=== PATIENT | male | born 1995 | race Caucasian/White ===

== ENCOUNTER 2019-11-21 17:21 | Emergency (ER) | payer MEDICAID ==
[~2019-11-21] VITALS: Ht 170.2 cm; Wt 61.7 kg
--- NOTE | 2019-11-21 17:30 | NUR ---
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
--- NOTE | 2019-11-21 17:38 | NUR ---
[employer]ES[employer] CONSULTANT DEGRASSE AT BEDSIDE FOR EVAL
[2019-11-21] MEDS ORDERED: IV NS 0.9% 1,000 ML BAG IV ONE (18:00)
--- NOTE | 2019-11-21 19:25 | NUR ---
REPORT GIVEN TO EPHRAIM JORDAN FOR JACIEL
--- NOTE | 2019-11-21 20:00 | NUR ---
family, bay left call back # [phone]
--- NOTE | 2019-11-21 20:05 | NUR ---
Pt removed his own IV and left without discharge paperwork.
--- NOTE | 2019-11-21 20:05 | NUR ---
NOTED IV ON BED. PT HAD ELOPED.
[2019-11-21 21:32] VITALS: BP 112/84
== END 2019-11-21 21:32 | disposition home or self-care (01) ==
LOC: ER 17:26
DX: T40.1X1A Poisoning by heroin, accidental (unintentional), initial encounter (principal); F15.90 Other stimulant use, unspecified, uncomplicated; R00.0 Tachycardia, unspecified; Z60.2 Problems related to living alone; Y92.89 Other specified places as the place of occurrence of the external cause
CPT/HCPCS: 96360; 96361; 99283; J7030